=== PATIENT | male | born 2000 | race Two or more races ===

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

== ENCOUNTER 2023-01-31 23:38 | Emergency (ER) | payer OTHER ==
[~2023-01-31] VITALS: Ht 190.5 cm; Wt 135.2 kg
[2023-02-01 00:10] VITALS: BP 123/71
== END 2023-02-01 00:12 | disposition home or self-care (01) ==
LOC: ED 23:38
DX: S61.412A Laceration without foreign body of left hand, initial encounter (principal); W27.8XXA Contact with other nonpowered hand tool, initial encounter
CPT/HCPCS: 12001; 99282